=== PATIENT | male | born 1970 | race Caucasian/White ===

== ENCOUNTER 2020-11-14 11:03 | Emergency (ER) | payer MEDICAID, OTHER ==
[~2020-11-14] VITALS: Ht 182.9 cm; Wt 90.0 kg
[2020-11-14 11:05] VITALS: TEMP 97
[2020-11-14] MEDS ORDERED: ONE-A-DAY ESSE1 EACH PO (11:36)
[2020-11-14 11:46] LABS: BASO # 0.1 (0.0-0.2); BASO % 0.5 % (0.0-2.0); EOS # 0.1 (0.0-0.7); EOS % 1.2 % (0-4.0); GRAN # 8.7 (1.4-6.5); GRAN % 75.4 % (42.2-75.2); HEMATOCRIT 43.6 % (42.0-52.0); HEMOGLOBIN 15.4 g/dl (13.5-18.0); LYMPH # 1.8 (1.2-3.4); LYMPH % 15.7 % (20.0-51.0); MEAN CELL VOLUME 87 fl (80.0-100.0); MEAN CORPUSCULAR HEMOGLOBIN 31 pg (27.0-31.0); MEAN CORPUSCULAR HGB CONC 35 g/dl (33.0-37.0); MEAN PLATELET VOLUME 9.6 fl (7.4-10.4); MONO # 0.8 (0.1-0.6); MONO % 6.6 % (1.7-9.3); PLATELET COUNT 223 K/mm3 (130-400); RED BLOOD COUNT 5.04 M/mm3 (4.20-5.60); REDCELL DISTRIBUTION WIDTH-CV 12.4 % (11.5-14.5)
[2020-11-14 11:55] LABS: ALBUMIN 4.5 gm/dL (3.5-5.0); BILIRUBIN,TOTAL 0.8 mg/dL (0.0-1.0); CALCIUM 9.8 mg/dL (8.4-10.2); CREATININE, serum 1.05 (0.66-1.25); POTASSIUM 4.1 mmol/L (3.4-5.0); TOTAL PROTEIN 7.6 gm/dL (6.4-8.2)
[2020-11-14 11:58] LABS: PARTIAL THROMBOPLASTIN TIME 27.8 SECONDS (26.0-37.0)
[2020-11-14 12:06] LABS: TROPONIN-I 0.021 ng/mL (0.000-0.035)
[2020-11-14 12:25] VITALS: BP 136/86; PULSE 75
== END 2020-11-14 12:25 | disposition short-term general hospital (02) ==
LOC: COL.ER 11:03
PROVIDERS: Emergency Medicine
DX: I21.3 ST elevation (STEMI) myocardial infarction of unspecified site (principal)
CPT/HCPCS: J1644; J3101

== ENCOUNTER 2021-03-29 15:47 | Outpatient (RCR) | payer MEDICAID, OTHER ==
[~2021-03-29 15:47] MED LIST: ONE-A-DAY ESSE1 EACH PO
== END 2021-05-14 | disposition home or self-care (01) ==
LOC: COL.CR
DX: I21.09 ST elevation (STEMI) myocardial infarction involving other coronary artery of anterior wall (principal); I25.5 Ischemic cardiomyopathy; I49.01 Ventricular fibrillation